=== PATIENT | male | born 1970 | race American Indian/Alaskan Native ===

== ENCOUNTER 2021-05-03 16:45 | Emergency (ER) | payer SELFPAY ==
[2021-05-03 20:11] VITALS: BP 151/93
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
--- NOTE | 2021-05-03 21:53 | XRay Report ---
Cervical spine 4 views INDICATION: Pain FINDINGS: Endplate degenerative change with small anterior disc osteophytes throughout. No subluxatio n. Cervicothoracic junction appears normal. Odontoid appears normal. IMPRESSION: No acute findings. 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 No compression fracture. Sacrum appears normal. Signer Name: New Dominique MD Signed: 05/03/2021 9:48 PM Workstation Name: [id number]
--- NOTE | 2021-05-03 21:53 | XRay Report ---
Cervical spine 4 views INDICATION: Pain FINDINGS: Endplate degenerative change with small anterior disc osteophytes throughout. No subluxatio n. Cervicothoracic junction appears normal. Odontoid appears normal. IMPRESSION: No acute findings. 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 No compression fracture. Sacrum appears normal. Signer Name: New Dominique MD Signed: 05/03/2021 9:48 PM Workstation Name: [id number]
--- NOTE | 2021-05-03 21:53 | XRay Report ---
PA chest with right ribs INDICATION: Rib pain FINDINGS: Lungs clear heart size appears normal. No pneumothorax. No displaced rib fracture is seen Signer Name: New Dominique MD Signed: 05/03/2021 9:49 PM Workstation Name: [id number]
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
== END 2021-05-03 22:30 | disposition home or self-care (01) ==
LOC: ED 16:45
DX: S43.401A Unspecified sprain of right shoulder joint, initial encounter (principal); S50.12XA Contusion of left forearm, initial encounter; M62.830 Muscle spasm of back; M62.838 Other muscle spasm; V89.2XXA Person injured in unspecified motor-vehicle accident, traffic, initial encounter; Y93.89 Activity, other specified; Y92.410 Unspecified street and highway as the place of occurrence of the external cause; Y99.8 Other external cause status
CPT/HCPCS: 72040; 72100; 99283